=== PATIENT | female | born 1990 | race Hispanic/Latino ===

== ENCOUNTER 2020-03-08 14:47 | Inpatient (IN) | payer MEDICAID ==
[2020-03-08] VITALS (7 sets, daily range): BP systolic 180–210; BP diastolic 93–113
[~2020-03-08] VITALS: Ht 157.5 cm; Wt 80.2 kg
[~2020-03-08 14:47] MED LIST: ACET1TAB25 PO; DOCU-116 PO; FERR-63 PO; LEVO112T7 PO; LOSA50TA64 PO; METO100T14 PO; METO5TAB2 PO; ONDA-104 PO; VERA120T20 PO
[2020-03-08 15:43] LABS: BASOPHILS % (AUTO) 0.6 % (0.0-5.0); EOSINOPHILS % (AUTO) 1.3 % (0.0-8.0); HEMATOCRIT 37.2 % (36-48); LYMPHOCYTES % (AUTO) 15.7 % (21.0-51.0); MEAN CORPUSCULAR HEMOGLOBIN 30.5 pg (27.0-33.0); MEAN CORPUSCULAR HGB CONC 31.5 g/dL (32.0-36.0); MEAN CORPUSCULAR VOLUME 97.1 fL (79-99); MONOCYTES % (AUTO) 8.6 % (3.0-13.0); NEUTROPHILS % (AUTO) 73.5 % (40.0-77.0); PLATELET COUNT (AUTO) 247 K/uL (130-400); RED BLOOD CELL COUNT(AUTO) 3.83 MIL/uL (4.00-5.50); RED CELL DISTRIBUTION WIDTH 13.8 % (11.0-15.5); WHITE BLOOD COUNT (AUTO) 6.2 K/uL (4.8-10.8)
[2020-03-08 15:51] LABS: INR 1.16 (0.85-1.15); PARTIAL THROMBOPLASTIN TIME 27.1 SEC (26.3-35.5); PROTHROMBIN TIME 12.5 SEC (9.6-11.6)
[2020-03-08 15:52] LABS: ALBUMIN 3.5 g/dL (3.5-5.0); BILIRUBIN,DIRECT 0.4 mg/dL (0.0-0.3); CREATININE 7.5 mg/dL (0.5-1.5); POTASSIUM 4.7 mmol/L (3.5-5.1)
[2020-03-08 16:34] LABS: ABG BASE EXCESS -0.3 mmol/L (-2.0-3.0); ABG HCO3 25.6 mmol/L (21.0-28.0); ABG OXYGEN SATURATION 40.2 % (95.0-99.0); ABG PCO2 47 mmHg (32-45)
[2020-03-08] MEDS ORDERED: INSULIN HUMULIN R 100 UNIT/ML 3ML ONE (17:31)
[2020-03-08] MEDS ORDERED: SODIUM CHLORIDE 0.9% 250 ML IV ONE (17:32)
[2020-03-08 17:38] LABS: AMPHET/METH SCREEN,URINE NEGATIVE (NEGATIVE); BARBITURATE SCREEN, URINE NEGATIVE (NEGATIVE); BENZODIAZEPINES SCREEN,URINE NEGATIVE (NEGATIVE); CANNABINOID SCREEN,URINE NEGATIVE (NEGATIVE); COCAINE SCREEN,URINE NEGATIVE (NEGATIVE); OPIATE SCREEN,URINE NEGATIVE (NEGATIVE); PHENCYCLIDINE SCREEN,URINE NEGATIVE (NEGATIVE)
[2020-03-08] MEDS ORDERED: HYDRALAZINE HCL 20 MG/ML VIAL ONE (19:22)
[2020-03-08] MEDS ORDERED: INSULIN REGULAR, HUMAN 3ML 100 UNIT in SODIUM CHLORIDE 0.9% 99 ML IV PRN ×2 (19:30)
[2020-03-08] MEDS ORDERED: ONDANSETRON HCL 4 MG/2 ML VIAL IVP PRN (19:30)
[2020-03-08] MEDS ORDERED: POTASSIUM CHLORIDE 20MEQ/100ML 100 ML IV PRN (19:30)
[2020-03-08] MEDS ORDERED: LORAZEPAM 2 MG/ML 1 ML VIAL IVP PRN (19:30)
[2020-03-08] MEDS ORDERED: LIDOCAINE HCL-MPF 1% 2ML VIAL IJ PRN (19:30)
[2020-03-08] MEDS ORDERED: ACETAMINOPHEN 325 MG TAB PO PRN (19:30)
[2020-03-08] MEDS ORDERED: POTASSIUM CHLORIDE 10% ELIXIR 20 MEQ/15 ML UDCUP PO PRN (19:30)
--- NOTE | 2020-03-08 20:10 | NUR ---
Patient admitted from ED to room 209 at 2009 on room air, vs as charted, no sign of seizure activity. Insulin drip started per Dr. Ford orders for facility protocol. Blood pressure elevated and being treated as per MD orders. Patient states she is comfortable at this time.
[2020-03-08] MEDS: HYDRALAZINE HCL 25 MG TABLET PO SCH (20:23)
[2020-03-08] MEDS: HYDRALAZINE HCL 20 MG/ML VIAL IV PRN ×2 (20:24→21:15)
[2020-03-08] MEDS: CEFTRIAXONE SODIUM 1 GM IVP SCH (20:24)
[2020-03-08] MEDS: METOCLOPRAMIDE 10 MG/2 ML VIAL IVP SCH (20:24)
[2020-03-08] MEDS ORDERED: FURO40SO PO (20:33)
[2020-03-09] VITALS (16 sets, daily range): BP systolic 143–197; BP diastolic 72–120
[2020-03-09] MEDS: METOCLOPRAMIDE 10 MG/2 ML VIAL IVP SCH ×4 (01:02→21:01)
[2020-03-09] MEDS: HYDRALAZINE HCL 25 MG TABLET PO SCH ×4 (01:02→20:58)
[2020-03-09 01:20] LABS: CREATININE 7.7 mg/dL (0.5-1.5); POTASSIUM 3.6 mmol/L (3.5-5.1)
[2020-03-09] MEDS: POTASSIUM CHLORIDE 20 MEQ ERTAB PO PRN ×2 (01:31→03:08)
[2020-03-09] MEDS: HYDRALAZINE HCL 20 MG/ML VIAL IV PRN ×2 (03:55→08:25)
[2020-03-09 05:44] LABS: MAGNESIUM 2.1 mg/dL (1.80-2.40); POTASSIUM 3.9 mmol/L (3.5-5.1)
[2020-03-09] MEDS: INSULIN HUMULIN R 100 UNIT/ML 3ML SQ SCH ×4 (07:30→21:50)
[2020-03-09] MEDS: LOSARTAN 50 MG TABLET PO SCH ×2 (08:25→21:49)
[2020-03-09] MEDS: VERAPAMIL HCL 240 MG SRTAB PO SCH ×2 (08:26→21:48)
[2020-03-09] MEDS: METOPROLOL TARTRATE 50 MG TAB PO SCH ×2 (08:26→21:49)
[2020-03-09] MEDS: FAMOTIDINE/PF 20 MG/2 ML VIAL IV SCH (08:26)
[2020-03-09] MEDS: LEVOTHYROXINE 112 MCG TABLET PO SCH (08:26)
[2020-03-09] MEDS: INSULIN GLARGINE 100 UNITS/ML 10 ML VIAL SQ SCH ×2 (08:27→21:51)
[2020-03-09 09:58] LABS: ABG BASE EXCESS 1.5 mmol/L (-2.0-3.0); ABG HCO3 24.7 mmol/L (21.0-28.0); ABG OXYGEN SATURATION 95.5 % (95.0-99.0); ABG PCO2 35 mmHg (32-45)
--- NOTE | 2020-03-09 14:45 | NUR ---
TRANSFER PATIENT RECEIVED FROM SECOND FLOOR. REPORT RECEIVED BY MICHAEL KEYS. PATIENT STATES NO COMPLAINTS OF PAIN OR DISCOMFORT AT THIS TIME; FAMILY MEMBER AT BEDSIDE
--- NOTE | 2020-03-09 14:47 | NUR ---
INITIAL: Call placed to on Jeffrey Grullon(pt's mother). Prior to admission pt was living w her parents. She was independent w ambulation and ADLs. Pt does not own any DME or receive prior services. Per pt's mother, pt attends @ [facility]. DCP is for pt to return home w her parents. Per Mrs Chang she will be able to assist pt as needed. CM to continue to follow and wait for Md recommendations. Addendum: 03/09/20 at 1458 by JAVIER COX Amended: Links added.
[2020-03-09] MEDS: CEFTRIAXONE SODIUM 1 GM IVP SCH (18:48)
[2020-03-10] MEDS: METOCLOPRAMIDE 10 MG/2 ML VIAL IVP SCH ×4 (02:25→20:47)
[2020-03-10 03:48] VITALS: BP 160/91
[2020-03-10] MEDS: HYDRALAZINE HCL 25 MG TABLET PO SCH ×5 (03:49→20:48)
[2020-03-10 05:32] LABS: MEAN CORPUSCULAR HGB CONC 32.4 g/dL (32.0-36.0); MEAN CORPUSCULAR VOLUME 95.6 fL (79-99); RED BLOOD CELL COUNT(AUTO) 3.87 MIL/uL (4.00-5.50); RED CELL DISTRIBUTION WIDTH 14.2 % (11.0-15.5)
[2020-03-10 05:52] LABS: HEMOGLOBIN A1C 13.2 % (4.0-6.0)
[2020-03-10 05:54] LABS: ALBUMIN 3.4 g/dL (3.5-5.0); MAGNESIUM 2.4 mg/dL (1.80-2.40); PHOSPHORUS 5.2 mg/dL (2.5-4.9); POTASSIUM 4.3 mmol/L (3.5-5.1)
[2020-03-10] MEDS: LEVOTHYROXINE 112 MCG TABLET PO SCH (06:09)
[2020-03-10] MEDS: INSULIN GLARGINE 100 UNITS/ML 10 ML VIAL SQ SCH ×2 (06:10→20:55)
[2020-03-10] MEDS: INSULIN HUMULIN R 100 UNIT/ML 3ML SQ SCH ×4 (06:11→20:54)
[2020-03-10 06:12] LABS: % IRON SATURATION 24.3 % (22-44)
[2020-03-10 06:14] LABS: CREATININE 9.5 mg/dL (0.5-1.5)
[2020-03-10 08:00] VITALS: BP 156/88
[2020-03-10] MEDS: METOPROLOL TARTRATE 50 MG TAB PO SCH ×2 (11:22→22:09)
[2020-03-10] MEDS: LOSARTAN 50 MG TABLET PO SCH ×2 (11:23→22:09)
[2020-03-10] MEDS: VERAPAMIL HCL 240 MG SRTAB PO SCH ×2 (11:23→22:09)
[2020-03-10] MEDS: FAMOTIDINE/PF 20 MG/2 ML VIAL IV SCH (11:23)
[2020-03-10 11:31] VITALS: BP 156/83
[2020-03-10 16:00] VITALS: BP 153/92
[2020-03-10 19:45] VITALS: BP 167/94
[2020-03-10] MEDS: CEFTRIAXONE SODIUM 1 GM IVP SCH (20:43)
[2020-03-10 23:12] VITALS: BP 166/79
[2020-03-11] MEDS: HYDRALAZINE HCL 25 MG TABLET PO SCH ×2 (01:36→08:51)
[2020-03-11] MEDS: METOCLOPRAMIDE 10 MG/2 ML VIAL IVP SCH (01:37)
--- NOTE | 2020-03-11 01:44 | NUR ---
PATIENT SWEATY, COMPLAINED OF FEELING "OFF", BLOOD SUGAR TAKEN, RESULTS 77. JUICE AND SNACK GIVEN. 0215-BLOOD SUGAR 95 AT THIS TIME. PATIENT STATED FELT BETTER/DENIES ANY COMPLAINTS.
[2020-03-11 03:59] VITALS: BP 126/96
[2020-03-11 05:08] LABS: HEMATOCRIT 34.6 % (36-48); MEAN CORPUSCULAR HEMOGLOBIN 31.1 pg (27.0-33.0); MEAN CORPUSCULAR HGB CONC 32.4 g/dL (32.0-36.0); MEAN CORPUSCULAR VOLUME 96.1 fL (79-99); RED BLOOD CELL COUNT(AUTO) 3.6 MIL/uL (4.00-5.50); RED CELL DISTRIBUTION WIDTH 14.4 % (11.0-15.5); WHITE BLOOD COUNT (AUTO) 7.4 K/uL (4.8-10.8)
[2020-03-11 05:22] LABS: CREATININE 7.7 mg/dL (0.5-1.5); POTASSIUM 4.3 mmol/L (3.5-5.1)
[2020-03-11] MEDS: INSULIN HUMULIN R 100 UNIT/ML 3ML SQ SCH ×2 (05:48→11:17)
[2020-03-11] MEDS: LEVOTHYROXINE 112 MCG TABLET PO SCH (06:18)
[2020-03-11] MEDS: INSULIN GLARGINE 100 UNITS/ML 10 ML VIAL SQ SCH (06:20)
[2020-03-11] MEDS ORDERED: METOCLOPRAMIDE 10 MG TABLET PO SCH (07:00)
--- NOTE | 2020-03-11 08:00 | NUR ---
ASSESSMENT PT IS AAOX3 DENIES CP DENIES SOB DENIES NV NO COMPLAINTS SITTING UPRIGHT IN BED. CALL LIGHT WITHIN REACH. AM MEDS GIVEN EEG COMPLETED.
[2020-03-11] MEDS: METOPROLOL TARTRATE 50 MG TAB PO SCH (08:50)
[2020-03-11] MEDS: LOSARTAN 50 MG TABLET PO SCH (08:51)
[2020-03-11] MEDS: FAMOTIDINE/PF 20 MG/2 ML VIAL IV SCH (08:51)
[2020-03-11] MEDS: VERAPAMIL HCL 240 MG SRTAB PO SCH (08:51)
[2020-03-11 09:00] VITALS: BP 156/98
[2020-03-11 10:12] LABS: HEPATITIS A ANTIBODY IGM Negative (Negative); HEPATITIS B CORE IGM Negative (Negative); HEPATITIS Bs ANTIGEN SCREEN P Negative (Negative)
[2020-03-11 10:12] LABS: HEPATITIS Bs ANTIGEN SCREEN P Negative (Negative)
[2020-03-11 11:21] VITALS: BP 159/90
[2020-03-11] MEDS ORDERED: HYDRALAZINE HCL 25 MG TABLET PO SCH (11:45)
[2020-03-11] MEDS ORDERED: HYDR25 PO (13:14)
--- NOTE | 2020-03-11 15:05 | NUR ---
DISCHARGE TO HOME PT AND FATHER VERBALIZE DC INSTRUCTIONS UNDERSTANDING AGREE TO TAKE MEDS ORDERED AND GO TO DIALYSIS IN AM. ALL QUESTIONS ANSWERED, PIV REMOVED CATH TIP INTACT, TELE PACK REMOVED.
== END 2020-03-11 15:15 | disposition home or self-care (01) | DRG 53 ==
LOC: EDH 14:47 → EDHIP 14:48 → 2BH 20:02 → 4DH 03-09 14:35
PROVIDERS: ADMIT Internal Medicine Pulmonary Disease; ATTEND Internal Medicine Pulmonary Disease
PROC: 5A1D70Z Performance of Urinary Filtration, Intermittent, Less than 6 Hours Per Day (ICD-10-PCS; principal; 2020-03-10)
DX: G40.909 Epilepsy, unspecified, not intractable, without status epilepticus (principal); I12.0 Hypertensive chronic kidney disease with stage 5 chronic kidney disease or end stage renal disease; E10.22 Type 1 diabetes mellitus with diabetic chronic kidney disease; E87.1 Hypo-osmolality and hyponatremia; D64.9 Anemia, unspecified; E10.65 Type 1 diabetes mellitus with hyperglycemia; N18.6 End stage renal disease; I16.1 Hypertensive emergency; F19.90 Other psychoactive substance use, unspecified, uncomplicated; Z79.4 Long term (current) use of insulin; Z91.14 Patient's other noncompliance with medication regimen; Z99.2 Dependence on renal dialysis
CPT/HCPCS: 36415; 36600; 70450; 70551; 71045; 80048; 80061; 80074; 80076; 80305; 82040; 82550; 82728; 82803; 82948; 83036; 83540; 83550; 83735; 84100; 84484; 84702; 85025; 85027; 85610; 85730; 86701; 86704; 86706; 87340; 87390; 87520; 90935; 93005; 95816; G0378; J0360; J0696; J1815; J2405; J2765; J3490; J7050